=== PATIENT | male | born 1995 | race Caucasian/White ===

== ENCOUNTER 2023-10-26 21:16 | Emergency (ER) | payer MEDICAID ==
[~2023-10-26] VITALS: Ht 185.4 cm; Wt 88.5 kg
[2023-10-26] MEDS ORDERED: DOXYCYCLINE HYCLATE 100 MG TABLET ONE (22:16)
[2023-10-26] MEDS ORDERED: NEOMY/BACITRA/POLYMYXIN B OINT UD PACKET TP ONE (22:18)
[2023-10-26] MEDS: DOXYCYCLINE HYCLATE 100 MG TABLET PO ONE (22:21)
[2023-10-26] MEDS: NEOMY/BACITRA/POLYMYXIN B OINT UD PACKET TP ONE (22:21)
[2023-10-26] MEDS ORDERED: DOXY-326 PO (22:22)
[2023-10-26 23:41] VITALS: BP 125/92; TEMP 98.2; O2SAT 99
== END 2023-10-26 23:41 | disposition home or self-care (01) ==
LOC: ER 21:25
DX: L70.0 Acne vulgaris (principal); L03.211 Cellulitis of face; F17.210 Nicotine dependence, cigarettes, uncomplicated; Z79.2 Long term (current) use of antibiotics
CPT/HCPCS: A4606; A4663